=== PATIENT | male | born 1960 | race Caucasian/White ===

== ENCOUNTER 2023-12-03 08:13 | Outpatient (CLI) | payer BC, SELFPAY ==
--- NOTE | ~2023-12-03 | US_ITS ---
EXAMINATION: US soft tissue groin LT DATE: 12/03/2023 08:48 INDICATION: Left inguinal lump. TECHNIQUE: Multiple grayscale and Doppler ultrasound images of the left groin were obtained. COMPARISON: None FINDINGS: There is a 3.7 x 3.6 x 3.2 cm mass in the left inguinal region. IMPRESSION: 1. Left inguinal mass suspicious for malignancy. Ultrasound-guided core needle biopsy is recommended. Reviewed, dictated and finalized at location E.
== END 2023-12-03 08:14 ==
LOC: GOSHIMG 08:15
PROVIDERS: PCP Nurse Practitioner Family; Visit Provider Nurse Practitioner Family
DX: R19.09 Other intra-abdominal and pelvic swelling, mass and lump (principal)
CPT/HCPCS: 76882

== ENCOUNTER 2023-12-24 09:17 | Outpatient (CLI) | payer BC, SELFPAY ==
--- NOTE | ~2023-12-24 | US_ITS ---
EXAMINATION: US biopsy lymph node DATE: 12/24/2023 10:31 INDICATION: Left inguinal lymphadenopathy. TECHNIQUE: The procedure including the risks, benefits, and alternatives was discussed with the patie nt. Risks discussed included bleeding and infection. The patient understood the risks and agreed to p roceed. The skin overlying the left inguinal region was prepped and draped in usual sterile fashion. Anesthetic was administered with 1% lidocaine subcutaneously. An 18 gauge core biopsy needle was th en used to obtain 8 core biopsy specimens under continuous sonographic guidance. The entry site was c leaned and dressed. There were no immediate complications. FINDINGS: Ultrasound images demonstrate the needle in a 4.4 x 2.3 cm left inguinal lymph node. IMPRESSION: 1. Ultrasound-guided core needle biopsy of an enlarged left inguinal lymph node. Reviewed, dictated and finalized at location A. IMPRESSION: 1. Ultrasound-guided core needle biopsy of an enlarged left inguinal lymph node .
== END 2023-12-24 09:18 | disposition home or self-care (01) ==
PROVIDERS: PCP Nurse Practitioner Family; Visit Provider Surgery
DX: R59.0 Localized enlarged lymph nodes (principal)
CPT/HCPCS: 38505; 76942; 88184; 88305

== ENCOUNTER 2024-02-28 11:31 | Outpatient (CLI) | payer BC, SELFPAY ==
--- NOTE | 2024-02-28 11:39 | ECG_ITS ---
Test Date: 2024-02-28 11:47:14 Measurements Intervals [place] Rate: 57 P: 63 MN: 151 QRS: 23 QRSD: 88 T: 31 QT: 378 QTc: 371 Interpretive Statements SINUS BRADYCARDIA BASELINE ARTIFACT- I, II, III, AVR, AVL, AVF, V1-V6 BORDERLINE ECG No previous ECG available for comparison Electronically Signed On 02-28-2024 11:59:48 CDT by Fidel Najera D.O.
== END 2024-02-28 11:32 | disposition home or self-care (01) ==
LOC: ANHSURGERY 11:34
PROVIDERS: PCP Nurse Practitioner Family; Visit Provider Surgery
DX: E78.5 Hyperlipidemia, unspecified (principal)
CPT/HCPCS: 93005

== ENCOUNTER 2024-03-02 00:21 | Day surgery (SDC) | payer BC, SELFPAY ==
[2024-02-26 09:54] VITALS: BMI 24.7
--- NOTE | 2024-02-26 10:00 | PC.NURSE ---
Report to the Outpatient Waiting Room, entrance under the green pavilion located off [facility], at time _0830_ on date _[id number]_. Planned Procedure Time: _1030_. Time changes happen often and if your time is changed the preop area will call you the afternoon before. - You and your visitor will be asked to self-screen and do not enter if you have any COVID symptoms. - A mask is optional within the hospital at this time. Patients may have clear liquids (water, carbonated beverages, clear teas, apple juice) until 3 hours prior to surgery with a maximum of 20 ounces. - No food from midnight until time of surgery Take the following medications with a SIP of water the morning of surgery: ___Levothyroxine DO NOT STOP ANY OF YOUR OTHER PRESCRIPTION MEDICATIONS PRIOR TO SURGERY ?EXCEPT THE FOLLOWING Medications to discontinue per physician All vitamins and supplements Date to take last siib___[id number] Please no make-up, nail spanish, hairspray, perfume, deodorant, or body powder the day of surgery. No jewelry (including any body piercings) or valuables the day of surgery, leave them at home. Please take a shower or bath the night before, or the morning of, surgery with an antibacterial soap. Wear comfortable, loose fitting clothing. - Jewelry must be removed prior to entering the operating room. Rings and piercings that are not removed may be cut off. - The hospital will not accept responsibility for valuables. - Please leave all valuables, including medications, at home the day of surgery. If you are going home after surgery, a licensed food service driver must drive you home. - NO public transportation without another adult if you receive anesthesia. - We recommend that an adult stay with you for 24 hours following discharge. - We also recommend that you do not drive, make important decision, drink alcoholic beverages, or take any drugs that were not prescribed by your health care provider for at least 24 hours after your discharge time. Follow any additional instructions given to you from your surgeon. If you or anyone in your household have experienced Covid symptoms in the past week, please notify your surgeon or the nurse liaison at the phone number below for possible testing. Telephone instructions given to __David__and asked if any additional questions and then verbalized understanding. Patient advised to call surgeon office or pre surgery nurse liaison [phone] if any additional questions.
--- NOTE | 2024-03-02 07:21 | WPDHPUPDATE1 ---
History and Physical Update Update Date/Time: 03/02/24 07:21 History and Physical has been reviewed, including an updated exam of the patient. There are NO changes in the patient's condition. Risks, benefits, and alternatives have been discussed and questions answered. Patient agrees to proceed with procedure.
[2024-03-02 07:26] VITALS: BP 129/57; PULSE 64; RESP 18; TEMP 36.8; O2SAT 100
[2024-03-02] MEDS: LACTATED RINGERS 1,000 ML 30 ML IV CONT ×2 (07:55→10:13)
--- NOTE | 2024-03-02 08:08 | WPDANESEPPF ---
Anes - Initial Pre Proc Eval Procedure: Operation Date: 03/02/24 09:00 Proposed Procedures p Excisional Biopsy of Left Inguinal Mass - Leana Zavaleta MD Date/Time: 03/02/24 08:08 Surgeon: Leana Zavaleta MD Pre Op Diagnosis: left inguinal mass Patient Data Age: 63 Gender: M Height: 1.79 m Weight: 78 kg Last Vital Signs Temp 36.8 C 03/02/24 07:26 Pulse 64 03/02/24 07:26 Resp 18 03/02/24 07:26 BP 129/57 L 03/02/24 07:26 Pulse Ox 100 03/02/24 07:26 O2 Del Method Room Air 03/02/24 07:26 Allergies Allergy/AdvReac Type Severity Reaction Status Date / Time No Known Allergies Allergy Verified 03/02/24 08:01 Home Medications Medication Instructions Recorded Confirmed Type levothyroxine 137 mcg tablet 137 mcg PO DAILY 12/11/23 03/02/24 History (Synthroid) pravastatin 40 mg tablet 40 mg PO DAILY 12/11/23 03/02/24 History amoxicillin 875 mg-potassium 1 tablet PO BID 14 days #28 tabs 02/25/24 03/02/24 Rx clavulanate 125 mg tablet cinnamon bark 500 mg capsule 500 mg PO DAILY 02/26/24 03/02/24 History (Cinnamon) coenzyme Q10 100 mg capsule 100 mg PO DAILY 02/26/24 03/02/24 History (CoQ-10) glucosam 750 mg-chondroi 100 1 tablet PO DAILY 02/26/24 03/02/24 History mg-hyalur 1.65 mg-CF borate 108 mg tablet (Move Free WegoWise) multivitamin 1 tablet PO DAILY 02/26/24 03/02/24 History omega 4-pyj-qdz-fish oil 1,200 mg 1 cap PO DAILY 02/26/24 03/02/24 History (144 mg-216 mg) capsule (Fish Oil) Patient hx anesthesia problems: none Family hx anesthesia problems: none Results Review: All pre-operative results and documents have been reviewed as part of the pre-operative evaluation. [facility] Past Medical History Medical History Hyperlipidemia Hypothyroid Family History Family History Other Cancer Cerebrovascular accident Heart disease Hypertension Social History Social History Smoking status: Never smoker Alcohol intake: current Alcohol use details: rarely Do You Feel Safe in your Home?: Yes Lack of Transportation: No Lack of Food: Never True Current Housing: I Have Housing Concerned About Future Housing: No Difficulty Paying Gas/Electric Bills: No Difficulty Paying for Meds: No Currently Unemployed: No Education: Master's Degree or Higher Difficulty w/ Childcare or Family Care: No Living arrangements: with family Spiritual care concerns: No Anes - Eval Final PreProcedure Day of Procedure 03/02/24 08:08 Patient weight: normal Heart: regular rate and rhythm Lungs: clear to auscultation Airway: Mallampati scale class II Neurological: alert and oriented Last oral intake: >/= 8 hours ASA classification: II Emergent: no Anesthetic plan: proceed Anesthesia type and monitoring: general GIVS and standard monitoring Results Review: All pre-operative results and documents have been reviewed as part of the pre-operative evaluation. Informed Consent: The patient's anesthetic plan and its attendant risks and benefits were discussed with the patient/family/POA. Questions were solicited and answers provided to the satisfaction of the patient/family/POA.
[2024-03-02] MEDS: ceFAZolin 2 GM/D5W 50 ML 2 GM/50 ML BAG IVPB (09:22)
[2024-03-02] MEDS: BUPIVACAINE/EPINEPHRINE 0.5% 10 ML VIAL 30 ML INFILTRATE (09:29)
--- NOTE | 2024-03-02 10:02 | SUR.OPER ---
Specimen (Fresh for Permanent) sent with ROM Joseph and received in pathology by Zarina
[2024-03-02 10:13] VITALS: BP 119/72; PULSE 56; RESP 16; O2SAT 97
--- NOTE | 2024-03-02 10:29 | P.OP_ITS ---
Procedure Note - Detailed Date of Procedure 03/02/24 Pre-op Diagnosis left inguinal mass Post-op Diagnosis Other ( Necrotic appearing left inguinal lymph node measuring 6 x 5 cm) Procedure Performed excisional biopsy left inguinal, most consistent with necrotic lymph node measuring 6 x 5 cm Surgeon Leana Zavaleta MD Anesthesia General and Local Indications 63-year-old male with a large left inguinal mass. Patient initially presented with left inguinal lymphadenopathy status post IR biopsy. The mass continues to get larger in size and is now quite uncomfortable. Findings Necrotic appearing left inguinal lymph node measuring 6 x 5 cm Description of Procedure The patient was taken the operating room placed in the supine position. After adequate induction of general anesthesia, the patient was prepped and draped in the normal sterile fashion. A time-out was then done to verify the patient's identity, as well as the procedure being performed. I began by localizing the area and around this mass in the left groin. A 15 blade scalpel was then used to make an incision over this mass. Upon getting into the subcutaneous tissue a large necrotic mass was noted. This was most consistent with a necrotic appearing lymph node. Using very careful dissection, both bluntly and sharply, I was able to excise this mass in full. This will now be sent to pathology for further review. This mass measured approximately 6 x 5 cm. There was some other smaller lymph nodes in the groin. I then copiously irrigated the cavity. Hemostasis was gained with the Bovie cautery. I then left a [place] drain in the cavity. The subcutaneous tissue was closed with 3-0 Vicryl suture. The skin was closed with 4-0 Monocryl subcuticular suture. The patient tolerated the procedure well and was extubated postoperatively. He will be transferred to the recovery room in stable condition. Estimated Blood Loss 10 Drains Yes Packing No Pathology Yes Complications No immediate complications Condition Stable Disposition PACU [facility] Billing Surgery - Charge Forward: Surgery Billing
[2024-03-02 10:40] VITALS: BP 137/72; PULSE 95; RESP 18; O2SAT 98
[2024-03-02] MEDS: oxyCODONE HCL (*CRX) 5 MG TAB IR PO (10:47)
[2024-03-02 11:05] VITALS: BP 127/81; PULSE 66; RESP 18
== END 2024-03-02 11:25 | disposition home or self-care (01) ==
PROVIDERS: PCP Nurse Practitioner Family; Visit Provider Surgery
PROC: (CPT 38531; principal; 2024-03-02 09:00)
DX: C77.4 Secondary and unspecified malignant neoplasm of inguinal and lower limb lymph nodes (principal); E78.5 Hyperlipidemia, unspecified; E03.9 Hypothyroidism, unspecified
CPT/HCPCS: 38531; 88304; 88342; A9270; J0690; J2704; J3010; J7120